=== PATIENT | female | born 1980 | race American Indian/Alaskan Native ===

== ENCOUNTER 2018-05-12 12:48 | Observation (INO) | payer MEDICAID, OTHER ==
[2018-05-12 12:48] VITALS: BMI 32.1
--- NOTE | 2018-05-12 14:43 | CT ---
Date of service: 05/12/2018 PROCEDURE: CT HEAD WITHOUT CONTRAST. HISTORY: Headache COMPARISON: None available. TECHNIQUE: Axial computed tomography images were obtained through the head/brain without intravenous contrast. Radiation dose: Total exam DLP = 1030.94 mGy-cm. This CT exam was performed using one or more of the following dose reduction techniques: Automated exposure control, adjustment of the mA and/or kV according to patient size, and/or use of iterative reconstruction technique. FINDINGS: HEMORRHAGE: No intracranial hemorrhage. BRAIN: No mass effect or edema. No atrophy or chronic microvascular ischemic changes. VENTRICLES: No hydrocephalus. CALVARIUM: Unremarkable. PARANASAL SINUSES: Unremarkable as visualized. No significant inflammatory changes. MASTOID AIR CELLS: Unremarkable as visualized. No inflammatory changes. OTHER FINDINGS: None. IMPRESSION: No acute intracranial pathology identified.
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
[2018-05-12 15:10] LABS: BASO # 0.1 K/uL (0.0-0.2); BASO % 1.4 % (0.0-2.0); EOS # 0.1 K/uL (0.0-0.7); EOS % 1.7 % (0.0-4.0); HEMOGLOBIN 12.9 g/dL (11.0-16.0); LYMPH % 42.6 % (20.0-40.0); MEAN CELL VOLUME 91.5 fL (81.0-99.0); MEAN CORPUSCULAR HEMOGLOBIN 29.5 pg (27.0-31.0); MEAN CORPUSCULAR HGB CONC 32.3 g/dL (33.0-37.0); MEAN PLATELET VOLUME 7.6 fL (7.2-11.7); MONO # 0.4 K/uL (0.0-0.8); MONO % 8.8 % (0.0-10.0); NEUT # 2.1 K/uL (1.8-7.0); NEUT % 45.5 % (50.0-75.0); NRBC % 0.1 % (0.0-2.0); RBC 4.37 Mil/uL (3.80-5.20); RED CELL DISTRIBUTION WIDTH 13.4 % (11.5-14.5); WHITE BLOOD COUNT 4.7 K/uL (4.8-10.8)
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
[2018-05-12 16:06] LABS: ALB/GLOB RATIO 1.4 (1.0-2.1); ALBUMIN 4.2 g/dL (3.5-5.0); BLOOD UREA NITROGEN 14 mg/dL (7-17); CALCIUM 8.6 mg/dl (8.6-10.4); GFR NON-AFRICAN AMERICAN > 60
[2018-05-12 16:16] LABS: ALT/SGPT 20 U/L (9-52); AST/SGOT 40 U/L (14-36)
[2018-05-13 00:34] VITALS: BP 111/70; O2SAT 98
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
[2018-05-13 08:45] LABS: FREE T4 1.06 ng/dL (0.78-2.19)
[2018-05-13] MEDS ORDERED: Pantoprazole 40 mg EC Tab PO SCH (10:00)
[2018-05-13 11:21] VITALS: PULSE 63; RESP 20; TEMP 98.5
--- NOTE | 2018-05-13 11:59 | RAD ---
Date of service: 05/13/2018 PROCEDURE: Radiographs of the Lumbar Spine. HISTORY: back pain COMPARISON: No prior. FINDINGS: Examination limited by habitus and technique. BONES: Alignment appears satisfactory. No listhesis. No acute displaced fracture identified. DISC SPACES: Unremarkable. OTHER FINDINGS: Partially imaged moderate constipation. IMPRESSION: Limited study. No acute displaced fracture or subluxation identified. Partially imaged moderate constipation.
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
[2018-05-13] MEDS ORDERED: Pneumococcal 23-Valent Vaccine IM ONE (13:30)
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
== END 2018-05-13 14:47 | disposition home or self-care (01) ==
LOC: C.ER 12:48 → C.9E 15:02 → C.3T 15:27 → C.9E 15:33 → C.3T 16:26
PROVIDERS: ADMIT Internal Medicine; ATTEND Internal Medicine
DX: G44.309 Post-traumatic headache, unspecified, not intractable (principal); F07.81 Postconcussional syndrome; V43.52XA Car driver injured in collision with other type car in traffic accident, initial encounter
CPT/HCPCS: 36415; 70450; 70544; 70547; 70551; 72100; 72125; 80053; 81025; 84146; 84439; 84443; 85025; 85651; 86334; 93880; 95812; 96374; 99285; G0378; J2060; J2405